=== PATIENT | female | born 1990 | race Caucasian/White ===

== ENCOUNTER 2017-04-15 18:49 | Emergency (ER) | payer SELFPAY ==
--- NOTE | ~2017-04-15 | ER ---
[facility] 26 [facility] [address] ROOM: [place] [address] LOCATION: ED ADMIT DATE: 04/15/2017 ER/Outpatient Report DISCHARGE DATE: 04/15/2017 FAMILY PHYSICIAN: PHYSICIAN, NO ATTENDING PHYSICIAN: Dm Loaiza Time of Arrival: 1849 hours. Time of Evaluation: 1900 hours. CHIEF COMPLAINT: Upper lip swelling. HISTORY OF PRESENT ILLNESS: This is a 26-year-old female, who presents to the ER, who states that she was planting some graham and marigold around 1730 hours and she touched her upper lip and then noticed some upper lip swelling approximately 30 minutes prior to arrival. She states she does not feel short of breath. She denies any tongue swelling or throat swelling. She states that just her upper lip is swollen. She has had no nausea or vomiting. No shortness of breath. She denies any other problems at this time. ALLERGIES: NO KNOWN ALLERGIES. MEDICATIONS: None. PAST MEDICAL HISTORY: Negative. PAST SURGERIES: Tubal ligation. SOCIAL HISTORY: Smokes half pack a day for the last 10 years. Denies any drug use. Drinks alcohol socially. REVIEW OF SYSTEMS: A 10-point review of systems was completed and was negative with the exception of those discussed in the HPI. PHYSICAL EXAMINATION: VITAL SIGNS: Weight 56.7 kg taken, blood pressure is 116/71, pulse 78, respirations 20, temperature 97.9 degrees tympanically, and saturations 100% on room air. Stone Coma Score is 15. PATIENT'S NAME: LISY [facility] AGE: 26 Y [address] ROOM: [place] [address] LOCATION: [facility] ADMIT DATE: 04/15/2017 ER/Outpatient Report DISCHARGE DATE: 04/15/2017 FAMILY PHYSICIAN: PHYSICIAN, NO ATTENDING PHYSICIAN: Dm Loaiza GENERAL: Alert, calm, well-developed, 26-year-old female, who presents to the ER, in no acute distress. HEENT: Head: Normocephalic. Eyes: Pupils are equal and reactive to light. Does display moist mucous membranes. I do not appreciate any angioedema. Her upper lip is slightly swollen. I did not appreciate any hives to the skin on her face. LUNGS: Clear to auscultation bilaterally. No wheeze or crackles. Normal respiratory effort. HEART: Regular rate and rhythm. EXTREMITIES: No clubbing, cyanosis, or edema. Has full range of motion of all limbs. LABORATORY DATA AND X-RAYS: None were done. IMPRESSION: Upper lip swelling, possible due to allergic reaction. ASSESSMENT AND PLAN: We did give the patient Benadryl 50 mg p.o. as well as prednisone 20 mg p.o. here in the emergency room. She may repeat the Benadryl every 6 hours if needed. I will send her home with a prednisone prescription to use as directed. She may place cool compresses to the skin. She needs to monitor her symptoms and follow up with primary care physician if needed. The patient understands and agrees with care. KANA ARZOLA PA-C FOR MD FELICIA JO/jodee /[id number] d: 04/16/17 0301 t: 04/21/17 1905, OUTPATIENT REPORT
== END 2017-04-15 19:25 | disposition disaster alternative care site (69) ==
LOC: GMED 18:49
DX: R22.9 Localized swelling, mass and lump, unspecified (principal); Z98.51 Tubal ligation status; Z87.891 Personal history of nicotine dependence
CPT/HCPCS: J7512

== ENCOUNTER 2017-05-21 17:37 | Emergency (ER) | payer SELFPAY ==
--- NOTE | ~2017-05-21 | ER ---
PATIENT'S NAME: ESTEPHANIA WASSERMAN [facility] AGE: 26 Y [address] ROOM: [place] [address] LOCATION: [facility] ADMIT DATE: 05/21/2017 ER/Outpatient Report DISCHARGE DATE: 05/21/2017 FAMILY PHYSICIAN: PHYSICIAN, NO ATTENDING PHYSICIAN: Kait Beltran CHIEF COMPLAINT: Seen in the emergency room for complaints of dizziness. HISTORY OF PRESENT ILLNESS: About 4 o'clock this afternoon, the patient became dizzy and nauseated. She has this happen about once every 3-4 months. Usually, she lays down and rests, and by the next day, the dizziness is gone. The dizziness does seem to be positional stating that if she does not move, her head does not spin as much. She denies any difficulty walking. She has not had any recent trauma to her head. She did vomit one time at the onset of the dizziness today. PAST MEDICAL HISTORY: None. SURGICAL HISTORY: Tubal ligation. ALLERGIES: NONE. HOME MEDICATIONS: None. REVIEW OF SYSTEMS: CONSTITUTIONAL: The patient denies any change in her weight. No fevers, chills, or sweats. HEENT: She denies any headache or vision changes. No nasal congestion. No sore throat. CARDIOVASCULAR: No complaints of chest pain or palpitations. RESPIRATORY: No shortness of breath or cough. GI: She is nauseated currently and did vomit one time before coming in. She states her bowels have been working well and she has no dark tarry stools or blood in her stool. She denies any abdominal pain. : No urgency, frequency, or dysuria. NEURO: No confusion or weakness. Dizziness as previously mentioned. No paresthesias. MUSCULOSKELETAL: No complaints. HEMATOLOGY: No history of bleeding disorder. SKIN: No complaints. [facility] 26 [facility] [address] ROOM: [place] [address] LOCATION: [facility] ADMIT DATE: 05/21/2017 ER/Outpatient Report DISCHARGE DATE: 05/21/2017 FAMILY PHYSICIAN: PHYSICIAN, NO ATTENDING PHYSICIAN: Kait Beltran ENDOCRINE: No complaints. PHYSICAL EXAMINATION: VITAL SIGNS: Temperature is 96.7, pulse of 87, respiratory rate of 18, blood pressure 111/71, and oxygen saturation 100% on room air. GENERAL APPEARANCE: She is alert and oriented. [place], warm, and dry. HEENT: Head, normocephalic. Eyes, PERRL. EOMs are intact. No nystagmus. Conjunctivae clear. Ears, TMs are pearly sood with light reflex bilaterally and landmarks easily visible. This is after the ears were irrigated to remove large amount of cerumen from both ears. Prior to the irrigation, the cerumen obscured the TMs. Nose, turbinates are pink without rhinorrhea. Pharynx without edema, erythema, or exudate. Mucous membranes moist. NECK: Supple. No lymphadenopathy. LUNGS: Clear. Normal respiratory effort and rate. HEART: Rate is regular. Normal S1, S2. No murmurs. ABDOMEN: Soft, nontender, nondistended. Bowel sounds are present in all 4 quadrants. EXTREMITIES: Without edema. Capillary refill is less than 3 seconds. Peripheral pulses are 2+. NEURO: Cranial nerves 2 through 12 are intact. Her motor strength is 5/5 in the upper and lower extremities. No nuchal rigidity. IMPRESSION/ASSSESSMENT: Benign positional vertigo. EMERGENCY DEPARTMENT COURSE: Ear wash using water pic removes large amount of hard dark cerumen from both ears. I believe this is likely benign positional vertigo perhaps could be related to her cerumen impactions, this all could be a ploy to get out of work as the patient does ask for a note to excuse her from work. DISPOSITION AND PLAN: The patient is instructed to use fluticasone nasal spray for at least a month. If she continues to have dizzy spells, she is to follow up with her primary care provider. She may return if she has any fevers, pain, worsening dizziness, and I did talk to her about Debrox for her ear wax. LUDIVINA CAMACHO APRN FOR KAIT BELTRAN DO DP/modl /[id number] d: 05/22/17 0202 t: 05/31/17 1422, OUTPATIENT REPORT
== END 2017-05-21 18:58 | disposition disaster alternative care site (69) ==
LOC: GMED 17:37
DX: H81.10 Benign paroxysmal vertigo, unspecified ear (principal); F17.210 Nicotine dependence, cigarettes, uncomplicated; Z98.51 Tubal ligation status